=== PATIENT | female | born 1955 | race Caucasian/White ===

== ENCOUNTER 2017-01-22 19:41 | Inpatient (IN) | payer BC ==
[~2017-01-22] VITALS: Ht 157.5 cm; Wt 73.5 kg
--- NOTE | ~2017-01-22 | DS ---
PATIENT:MARITZA FLORES :53 MEDICAL RECORD: [id number] DISCHARGE SUMMARY ADMISSION DATE: 01/22/17 DISCHARGE DATE: 01/30/17 DATE OF ADMISSION: 01/22/2017 DATE OF DISCHARGE: 01/30/2017 ADMITTING DIAGNOSES: 1. Mass of the right lung. 2. Superior vena cava syndrome. 3. Dyspnea. 4. Dyspnea on exertion. 5. Anemia, unknown etiology. 6. Nicotine dependence with withdrawal. 7. Peripheral vascular disease. 8. Hypertension. 9. Chronic back pain. 10. History of degenerative disc disease. 11. Chronic obstructive pulmonary disease. HISTORY OF PRESENT ILLNESS: This is a 61-year-old white female patient of Dr. Leija'delilah admitted with diagnoses as outlined above. Details are well-outlined in the history of the present illness, H&P. All events, lab procedures, and diagnostic testing are well documented in the records. CONSULTANTS: 1. Dr. Workman, pulmonology. 2. Dr. Davila, hematology/oncology. 3. Dr. Obrien, cardiovascular surgery. 4. Dr. Garcia, general surgery. 5. Dr. Toney, interventional radiology. She underwent a CT-guided lung biopsy. Path showed stage IIB, IIA [id number] lung carcinoma, staging started. Bone scan negative. CT abdomen, right pleural effusion, no other intra-abdominal pathology. MRI was negative for any mets or any acute pathology. Iron stores found to be a little low, so p.o. iron added. Blood sugars closely followed and were stable. Her other appropriate home medicines continued. She did get port placed today by Dr. Garcia. She tolerated it well. She is stable for dismissal home. She will see Dr. Davila on Friday of this upcoming week. She was given a PET scan diet. PET scan will be arranged for next week. She will start chemo next week, possible radiation as planned. Dr. Obrien will continue to follow. She is dismissed home. We will have house calls follow up with her as well. DISCHARGE DIAGNOSES: 1. Mass of the right lung. 2. Superior vena cava syndrome. 3. Dyspnea. 4. Dyspnea on exertion. 5. Anemia, unknown etiology. 6. Nicotine dependence with withdrawal. 7. Peripheral vascular disease. 8. Hypertension. 9. Chronic back pain. DISCHARGE SUMMARY REPORT [id number] MARITZA FLORES 10. History of degenerative disc disease. 11. Chronic obstructive pulmonary disease. 12. Stage IIB, IIA [id number] lung cancer. The tumor has extension into the mediastinum and she is not a surgical candidate. The tumor is involving her superior vena cava as well as bulky disease in the mediastinum. Dr. Obrien wants to reevaluate her after chemotherapy. 13. Iron deficient anemia and likely anemia of malignancy. 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 She was started on Eliquis. OTHER DIAGNOSES: Chronic obstructive pulmonary disease, acute exacerbation, improved; nicotine dependence with withdrawal, suspected superior vena cava syndrome with neck swelling, cough, possible postobstructive pneumonia in the right upper lobe, hypertension, peripheral artery disease, chronic back pain, diabetes, Crohn's, depression, hypothyroid, weight loss, iron deficient anemia. Greater than 30 minutes was spent on this discharge. Please refer to med rec. TRANSINT:[id number] Voice Confirmation ID: [id number] DOCUMENT ID: [id number] Dictated By: ANGELLA MELÉNDEZ RN I have interviewed/examined the above patient and agree with these documented findings. GEORGE DOSHI MD CC: [id number] DICTATION DATE: 01/30/17 1533 PATTERN GENERATOR OPERATOR: 01/31/17 1045 DIS IN 01/30/17 [facility] [address] [place] [address]
[~2017-01-22 19:41] MED LIST: ACETAMINOPHEN500 M1 PO; ALDACTONE100 MG PO; APRISO0.375 GM PO; ARMOUR THYROID90 MG PO; CALTRATE-600600 MG PO; DUONEB 2.5-0.5 M3 ML UPD; EFFEXOR75 MG PO; ESTER-C 500 MG1 TAB PO; FISH OIL 1,0001 CA1 PO; FLAXSEED OIL1000 MG PO; FOLIC ACID1 MG PO; GLUCOPHAGE500 MG PO; HYDROCHLOROTHIA25 MG PO; HYDROCODONE-APA1 TAB PO; LISINOPRIL5 MG PO; LOTREL 5/10 MG1 CAP PO; MICRO-K10 MEQ PO; MULTI-DAY VITAM1 TAB PO; NORCO 10/325 TA1 TA1 PO; OXYCODONE HCL10 MG PO; PROMETRIUM200 MG PO; QUESTRAN PACK4 G/PKT PO; ROBAXIN-750750 MG PO; ULTRAM50 MG PO; VENTOLIN HFA18 GM INH; XANAX1 MG PO; ZANAFLEX2 MG PO; ZETIA10 MG PO; ZYLOPRIM300 MG PO; [UNRECOGNIZED DRUG - OTHER] PO
[2017-01-22 22:04] LABS: BASOPHILS 0.1 % (0-2); HEMATOCRIT 35.8 % (36.0-48.0); HEMOGLOBIN 11.7 g/dL (12-16); IMMATURE GRANULOCYTES 0.1 % (0-5); LYMPHOCYTES 20.1 % (15-50); MCHC 32.7 g/dL (31.0-37.0); MCV 94.7 fL (80.0-100.0); MEAN PLATELET VOLUME 9.3 fL (7.4-10.4); MONOCYTES 9.9 % (2-11); NEUTROPHILS 67.8 % (40-80); PLATELET COUNT 381 10x3/uL (130-400); RBC 3.78 10x6/uL (4.00-5.40); RDW 13.5 % (11.5-14.5)
[2017-01-22 22:17] LABS: ALBUMIN 3.2 g/dL (3.4-5.0); ALKALINE PHOSPHATASE 78 U/L (46-116); ALT (SGPT) 17 U/L (10-68); BILIRUBIN - TOTAL 0.28 mg/dL (0.2-1.3); CALC OSMOLALITY 274 mosm/kg (275-300); CALCIUM 9.6 mg/dL (8.5-10.1); CARBON DIOXIDE 26.8 mmol/L (21.0-32.0); CHLORIDE - SERUM 104 mmol/L (98-107); CREATININE - SERUM 0.8 mg/dL (0.6-1.3); GLUCOSE 85 mg/dL (74-106); PROTEIN - SERUM 7.4 g/dL (6.4-8.2); SODIUM 139 mmol/L (136-145); UREA NITROGEN 6 mg/dL (7-18); eGFR NON AFRICAN AMERICAN 77 mL/min (90-120)
[2017-01-23] VITALS: BP 149/79
--- NOTE | 2017-01-23 03:18 | NUR ---
ORDER PLACED FOR CT SCAN WITH CONTRAST. PT STATES NOT WANTING TO DO A CT WITH CONTRAST D/T HER METFORMIN. SPOKE WITH DR MORLEY, RELATES THAT IT WILL BE OK TO CHANGE THE CT CHEST TO WITHOUT CONTRAST. PT UPDATED ON POC. WILL MONITOR.
[2017-01-23 07:35] VITALS: BP 103/52
--- NOTE | 2017-01-23 08:04 | NUR ---
0725-AM ROUNDING DONE WITH PATIENT SITTING ON SIDE OF BED ON CELL PHONE. DENIES NEEDS AT PRESENT TIME. ON ROOM AIR. NO IV AT PRESENT TIME. MALE MEBER ASLEEP IN CHAIR.
--- NOTE | 2017-01-23 09:11 | NUR ---
PATIENT'S FACE, UPPER CHEST, AND BILATERAL ARMS ARE SWOLLEN. NO IV ACCESS YET, SHE HAS CONSENTED TO ONE.
--- NOTE | 2017-01-23 10:46 | NUR ---
UP WALKING IN HALLWAY WITH MALE MEMBER, DENIES ANY NEEDS AT PRESENT TIME.
--- NOTE | 2017-01-23 10:56 | NUR ---
20 G IV X 1 STICK TO RIGHT INNER UPPER ARM PER Ailyn CASIANO RN.
[2017-01-23 11:52] VITALS: BP 107/48
--- NOTE | 2017-01-23 13:37 | NUR ---
UP AMBULATING IN HALLWAY. DENIES NEEDS AT PRESENT TIME.
--- NOTE | 2017-01-23 14:07 | NUR ---
DR CHARLES HERE TO SEE PATIENT. PLACED ON 2L PER NC PATIENT IS GETTING SHORT OF BREATH.
--- NOTE | 2017-01-23 14:39 | NUR ---
BILATERAL SCD'S PLACED ON PATIENT AND IN USE.
--- NOTE | 2017-01-23 14:53 | NUR ---
PLACED ON HEART MONITOR SHOWING SR, HR 84
--- NOTE | 2017-01-23 15:27 | NUR ---
PATIENT IS INFORMED OF NPO PAST MIDNIGHT TONIGHT, PERMITS SIGNED FOR CONSENT FOR CT LUNG BIOSPY.
[2017-01-23 16:42] VITALS: BP 93/49
--- NOTE | 2017-01-23 17:18 | NUR ---
TO MRI VIA WHEELCHAIR.
--- NOTE | 2017-01-23 18:10 | NUR ---
RETURNS FROM RADIOLOGY, DR DIAS HERE TO SEE PATIENT. DR LAUREN AND OBED CAME BY EARILER BUT SHE WAS IN XRAY.
[2017-01-23 22:09] VITALS: BP 112/61
--- NOTE | 2017-01-23 22:09 | NUR ---
Recieved patient in her bed, alert and oriented X 4, bed in low and locked position, siderails up X 2, PRN Ativan 2 mg PO, [place]-10, and Tussionex 5 ml given at 1999, patient resting now quietly in bed, continue plan of care.
--- NOTE | 2017-01-24 01:34 | NUR ---
Patient resting in bed sleeping, family at bedside.
[2017-01-24 01:50] VITALS: BP 122/68
--- NOTE | 2017-01-24 04:13 | NUR ---
PRN [place] - 10 PO given for generalized pain 10 of 10 and Ativan 2 mg PO for anxiety given at 0410.
[2017-01-24 05:31] VITALS: BP 116/64
[2017-01-24 06:26] LABS: BASOPHILS 0.4 % (0-2); EOSINOPHILS 2.9 % (0-7); HEMATOCRIT 33.6 % (36.0-48.0); HEMOGLOBIN 10.8 g/dL (12-16); IMMATURE GRANULOCYTES 0.2 % (0-5); LYMPHOCYTES 30.6 % (15-50); MCH 30.3 pg (26.0-34.0); MCHC 32.1 g/dL (31.0-37.0); MCV 94.4 fL (80.0-100.0); MEAN PLATELET VOLUME 9.3 fL (7.4-10.4); MONOCYTES 13.5 % (2-11); NEUTROPHILS 52.4 % (40-80); PLATELET COUNT 338 10x3/uL (130-400); RBC 3.56 10x6/uL (4.00-5.40); RDW 13.4 % (11.5-14.5)
[2017-01-24 06:37] LABS: WBC 5.1 10x3/uL (4.8-10.8)
[2017-01-24 06:38] LABS: APTT 32.9 SECONDS (22.8-39.4); INR 1.01 (0.85-1.17); PROTIME 13.2 SECONDS (11.6-15.0)
[2017-01-24 06:47] LABS: ALBUMIN 2.7 g/dL (3.4-5.0); ALKALINE PHOSPHATASE 60 U/L (46-116); ALT (SGPT) 13 U/L (10-68); CALC OSMOLALITY 270 mosm/kg (275-300); CARBON DIOXIDE 24.5 mmol/L (21.0-32.0); CHLORIDE - SERUM 103 mmol/L (98-107); CREATININE - SERUM 0.7 mg/dL (0.6-1.3); GLUCOSE 96 mg/dL (74-106); PROTEIN - SERUM 6.5 g/dL (6.4-8.2); SODIUM 137 mmol/L (136-145); UREA NITROGEN 5 mg/dL (7-18); eGFR NON AFRICAN AMERICAN 90 mL/min (90-120)
--- NOTE | 2017-01-24 07:48 | NUR ---
AM ROUNDING- RECEIVED REPORT FROM TIME STUDY TECHNICIAN NURSE REN. PT IS CURRENTLY LAYING IN BED ON BACK WITH EYES CLOSED RESTING. ON MONITOR SHOWING SR, HR 79. NPO CURRENTLY FOR PROCEDURE TODAY. 0N 02 AT 2L VIA NC. IV SEEN TO RIGHT ARM THAT IS CURRENTLY SALINE LOCKED. SCDS ARE ON. CONSENTS ARE SIGNED FOR PROCEDURE AND ARE IN CHART. NO NEED AT CURRENT TIME. WILL CONTINUE TO MONITOR AND CONTINUE WITH PLAN OF CARE.
[2017-01-24 08:17] VITALS: BP 98/49
--- NOTE | 2017-01-24 08:33 | NUR ---
PT TO PROCEDURE VIA BED.
--- NOTE | 2017-01-24 08:57 | NUR ---
SPECIALS CALLED AND GAVE REPORT ON PT. PER REPORT PT HAD NO PNEUMOTHORAX AND WITH HARDLY ANY BLEEDING SEEN. WILL AWAIT PT TO RETURN AND CONTINUE TO MONITOR.
--- NOTE | 2017-01-24 09:04 | NUR ---
PT BACK FROM PROCEDURE VIA BED. LEATHA RAYMUNDO STATES IT IS NORMAL FOR PT TO COUGH UP SOME BLOOD BUT LET THEM KNOW IF IT IS AN ABNORMAL AMOUNT. NO FURTHER ORDERS GIVEN. WILL CONTINUE TO MONITOR.
[2017-01-24 11:41] VITALS: BP 100/62
--- NOTE | 2017-01-24 11:50 | NUR ---
PT IS VERY CONFUSED. INSTRUCTED PT TO STAY IN BED AND NOT GET UP WITHOUT ASSISTANCE. SIDE RAILS UP X 2 AND BED ALARM IS ON. WILL CONTINUE TO MONITOR.
[2017-01-24 14:55] VITALS: BP 110/59
--- NOTE | 2017-01-24 17:46 | NUR ---
PT IS CURRENTLY LAYING IN BED ON BACK. GUEST AT BEDSIDE. GUEST REQUEST WHEELCHAIR SO HE CAN TAKE PT DOWN TO SEE HER SON. WHEELCHAIR GIVEN TO PT. NO OTHER NEED AT CURRENT TIME. WILL CONTINUE TO MONITOR.
[2017-01-24 20:00] VITALS: BP 133/51
--- NOTE | 2017-01-24 20:15 | NUR ---
ASSESSMENT DONE. PT STANDING AT DOOR TO HER ROOM, WAITING ON FRIEND TO BRING W/C. PT STATES SHE IS GOING OUTSIDE TO SEE HER PUPPY. PT IS OFF BALANCE. BUT REFUSING TO SIT AND WAIT ON W/C. PT'S FRIEND BROUGHT W/C STATES HE WILL SIT WITH HER OUTSIDE.
--- NOTE | 2017-01-24 21:00 | NUR ---
PT BACK IN ROOM. SLEEPING. HOB ELEVATED. O2 AT 2L VIA NC. APPEARS COMFORTABLE. NO DISTRESS NOTED. CALL LIGHT WITH IN REACH. SCD'S OFF AT THIS TIME. BED ALARM TURNED ON. WILL CONT. TO MONITOR.
--- NOTE | 2017-01-24 21:41 | NUR ---
PT UP IN RESTROOM. NURSE ASSISTED PT BACK TO BED. SCD'S PLACED ON PT. PT NOT WEARING O2. NURSE PLACED NC ON PT. ALSO BED ALARM TURNED ON. DOOR TO ROOM LEFT OPEN. CALL LIGHT WITH IN REACH. WILL CONT. TO MONITOR.
--- NOTE | 2017-01-24 23:38 | NUR ---
PT SLEEPING. LAYING WITH BED FLAT AND LAYING ON LEFT SIDE. EYES CLOSED, RESP EVEN AND UNLABORED. WEARING O2. PT APPEARS COMFORTABLE. BED ALARM ON. CALL LIGHT WITH IN REACH. WILL CONT. TO MONITOR.
--- NOTE | 2017-01-25 00:35 | NUR ---
PT TURNED BED ALARM OFF AND REMOVED SCD'S, AMBULATED TO PCU NURSES STATION AND REQUESTED COFFEE. WHEN NURSE ASKED WHY SHE DIDN'T USE HER CALL LIGHT SHE STATES "I LOST IT." PT MADE TO SIT IN CHAIR WHILE STAFF ASSISTED WITH MAKING COFFEE. PT A/O. NO WEARING O2. SLIGHT SOB NOTED. WILL CONT. TO MONITOR.
--- NOTE | 2017-01-25 01:05 | NUR ---
PT BACK IN BED. A/O. WATCHING TV AND EATING ICECREAM. DENIES NEEDS. CALL LIGHT WITH IN REACH. WILL CONT. TO MONITOR.
--- NOTE | 2017-01-25 02:35 | NUR ---
PT SLEEING. APPEARS COMFORTABLE. WEARING O2. PT IS SNORING. CALL LIGHT WITH IN REACH. WILL CONT. TO MONITOR.
--- NOTE | 2017-01-25 04:30 | NUR ---
SPUTUM COLLECTION CONTAINER TAKEN TO PT'S ROOM. EDUCATED PT ON HOW TO OBTAIN SPECIMEN. UNDERSTANDING VERBALIZED.
--- NOTE | 2017-01-25 04:48 | NUR ---
PT SITTING UP ON SIDE OF BED DRINKING COFFEE. A/O X3. REFUSING TO WEAR O2 AT THIS TIME, BUT NC IS BESIDE PT ON BED FOR WHEN SHE BECOMES SOB. NO DISTRESS NOTED. PT DENIES OTHER NEEDS AT THIS TIME. CALL LIGHT WITH IN REACH. WILL CONT. TO MONITOR.
[2017-01-25 05:01] LABS: BASOPHILS 0.6 % (0-2); EOSINOPHILS 2.1 % (0-7); HEMATOCRIT 34.3 % (36.0-48.0); HEMOGLOBIN 10.9 g/dL (12-16); IMMATURE GRANULOCYTES 0.2 % (0-5); LYMPHOCYTES 28.7 % (15-50); MCHC 31.8 g/dL (31.0-37.0); MCV 94.5 fL (80.0-100.0); MEAN PLATELET VOLUME 9.3 fL (7.4-10.4); MONOCYTES 13.3 % (2-11); NEUTROPHILS 55.1 % (40-80); PLATELET COUNT 378 10x3/uL (130-400); RBC 3.63 10x6/uL (4.00-5.40); RDW 13.4 % (11.5-14.5); WBC 4.7 10x3/uL (4.8-10.8)
[2017-01-25 05:11] VITALS: BP 103/66
[2017-01-25 05:29] LABS: ALBUMIN 2.8 g/dL (3.4-5.0); ALKALINE PHOSPHATASE 63 U/L (46-116); ALT (SGPT) 14 U/L (10-68); CALC OSMOLALITY 274 mosm/kg (275-300); CALCIUM 9.1 mg/dL (8.5-10.1); CARBON DIOXIDE 26.1 mmol/L (21.0-32.0); CHLORIDE - SERUM 104 mmol/L (98-107); CREATININE - SERUM 0.7 mg/dL (0.6-1.3); GLUCOSE 97 mg/dL (74-106); POTASSIUM - SERUM 4.4 mmol/L (3.5-5.1); PROTEIN - SERUM 6.8 g/dL (6.4-8.2); SODIUM 139 mmol/L (136-145); UREA NITROGEN 5 mg/dL (7-18); eGFR NON AFRICAN AMERICAN 90 mL/min (90-120)
--- NOTE | 2017-01-25 10:17 | NUR ---
0700- AM ROUNDING, RECEIVED REPORT FROM TEST PREPARATION TUTOR NURSE JAKE. PT IS CURRENTLY WALKING AROUND IN [address]. ON MONITOR SHOWING SR, HR 84. ON 02 AT 2L VIA NC. IV SEEN TO RIGHT UPPER ARM THAT IS CURRENTLY SALINE LOCKED. CLEAN, DRY, AND INTACT DRESSING SEEN TO RIGHT CHEST AREA FROM WHERE PT HAD PROCEDURE YESTERDAY. SCDS ARE AT BEDSIDE. NO NEED AT CURRENT TIME. WILL CONTINUE TO MONITOR.
[2017-01-25 10:48] VITALS: BP 119/70
[2017-01-25 13:59] VITALS: BP 124/69
[2017-01-25 16:51] VITALS: BP 111/53
--- NOTE | 2017-01-25 19:28 | NUR ---
RESTING ON LEFT SIDE, RESPERATIONS EVEN, NO S/S DISTRESS NOTED. BED LOW, CL IN REACH.
[2017-01-25 20:00] VITALS: BP 139/76
--- NOTE | 2017-01-25 21:28 | NUR ---
HS MEDS GIVEN WITH FRESH ICE WATER. NORCO 1 TAB GIVEN FOR C/O PAIN, RATES PAIN AT A 6 ON PAIN SCALE. NO OTHER NEEDS AT THIS TIME, BED LOW, CL IN REACH.
[2017-01-26] VITALS (7 sets, daily range): BP systolic 104–148; BP diastolic 50–78
--- NOTE | 2017-01-26 02:29 | NUR ---
OUT OF ROOM, SITTING AT NURSES STATION.
--- NOTE | 2017-01-26 02:31 | NUR ---
RESTING WITH EYES CLOSED, RESPERATIONS EVEN, NO S/S DISTRESS NOTED.
[2017-01-26 06:06] LABS: BASOPHILS 0.8 % (0-2); EOSINOPHILS 2.2 % (0-7); HEMATOCRIT 33.9 % (36.0-48.0); HEMOGLOBIN 11.1 g/dL (12-16); IMMATURE GRANULOCYTES 0.2 % (0-5); LYMPHOCYTES 27.1 % (15-50); MCH 30.7 pg (26.0-34.0); MCHC 32.7 g/dL (31.0-37.0); MCV 93.6 fL (80.0-100.0); MEAN PLATELET VOLUME 9.1 fL (7.4-10.4); MONOCYTES 13.5 % (2-11); NEUTROPHILS 56.2 % (40-80); PLATELET COUNT 357 10x3/uL (130-400); RBC 3.62 10x6/uL (4.00-5.40); RDW 13.3 % (11.5-14.5); WBC 5.1 10x3/uL (4.8-10.8)
[2017-01-26 06:25] LABS: % SATURATION 10 % (15-55); IRON 29 ug/dl (35-150); TOTAL IRON BIND CAPACITY 269 ug/dl (260-445); UNSAT IRON BIND CAPACITY 240 ug/dl (150-375)
[2017-01-26 07:18] LABS: ALBUMIN 2.9 g/dL (3.4-5.0); ALKALINE PHOSPHATASE 71 U/L (46-116); ALT (SGPT) 13 U/L (10-68); BILIRUBIN - TOTAL 0.17 mg/dL (0.2-1.3); CALC OSMOLALITY 275 mosm/kg (275-300); CALCIUM 9.2 mg/dL (8.5-10.1); CHLORIDE - SERUM 105 mmol/L (98-107); CREATININE - SERUM 0.7 mg/dL (0.6-1.3); FERRITIN 76 ng/mL (3-244); GLUCOSE 108 mg/dL (74-106); PROTEIN - SERUM 6.5 g/dL (6.4-8.2); SODIUM 139 mmol/L (136-145); UREA NITROGEN 5 mg/dL (7-18); eGFR NON AFRICAN AMERICAN 90 mL/min (90-120)
[2017-01-26 07:20] LABS: POTASSIUM - SERUM 3.7 mmol/L (3.5-5.1)
--- NOTE | 2017-01-26 07:45 | NUR ---
CHARTS CHECKED. SHIFT ASSESSMENT COMPLETED. INTRODUCED MYSELF TO PT PRIMARY RN FOR TODAYS SHIFT. PT RESTING QUIETLY AND DENIES ANY CURRENT NEEDS AT THIS TIME. CL IN REACH. WILL CTM.
--- NOTE | 2017-01-26 09:20 | NUR ---
ADMINISTERED AM MEDICATIONS ORDERED. PT REFUSED HER METFORMIN R/T HAVING POSSIBLE TEST AND KNOWING IF WITH CONTRAST THAT IT WOULD NEED HELD. 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 PT REQUESTED AND WAS PROVIDED WITH PRN VALIUM AND ROBAXIN FOR ANXIETY AND MS. PT SITTING UP ON EDGE OF BED DRINKING HER COFFEE. DENIES ANY FURTHER NEEDS AT THIS TIME. CL IN REACH, BED IN LOWEST, SIDE RAILS X2. WILL CPOC.
--- NOTE | 2017-01-26 15:34 | NUR ---
PT NPO FOR CT SCAN BUT IS DRINKING THE CONTRAST FOR TEST. PT IS VERY LETHARGIC/DROWSY HASNT BEEN GIVEN ANY SEDATIVES SINCE EARLY THIS MORNING. VSS. PT DENIES ANY FURTHER NEEDS. WILL CPOC.
--- NOTE | 2017-01-26 19:41 | NUR ---
RESUMED CARE OF PT, UP IN HALLWAY AMBULATING. 86 SR ON TELEMETRY. RIGHT UPPER ARM SALINE LOCKED. CALL LIGHT IN REACH. WILL CONTINUE TO MONITOR. SEE NURSE ASSESSMENT.
--- NOTE | 2017-01-27 00:54 | NUR ---
LYING IN BED WITH EYES CLOSED, CALL LIGHT IN REACH. WILL CONTINUE WITH PLAN OF CARE.
[2017-01-27 03:23] VITALS: BP 127/56
[2017-01-27 04:53] LABS: BASOPHILS 0.4 % (0-2); EOSINOPHILS 2.6 % (0-7); HEMATOCRIT 33.3 % (36.0-48.0); HEMOGLOBIN 10.7 g/dL (12-16); IMMATURE GRANULOCYTES 0.2 % (0-5); LYMPHOCYTES 25.3 % (15-50); MCH 30.4 pg (26.0-34.0); MCHC 32.1 g/dL (31.0-37.0); MCV 94.6 fL (80.0-100.0); MEAN PLATELET VOLUME 9.4 fL (7.4-10.4); MONOCYTES 10.8 % (2-11); NEUTROPHILS 60.7 % (40-80); PLATELET COUNT 364 10x3/uL (130-400); RBC 3.52 10x6/uL (4.00-5.40); RDW 13.3 % (11.5-14.5); WBC 5.1 10x3/uL (4.8-10.8)
[2017-01-27 05:10] LABS: ALBUMIN 2.7 g/dL (3.4-5.0); ALKALINE PHOSPHATASE 67 U/L (46-116); ALT (SGPT) 11 U/L (10-68); CALC OSMOLALITY 277 mosm/kg (275-300); CALCIUM 8.9 mg/dL (8.5-10.1); CARBON DIOXIDE 27.2 mmol/L (21.0-32.0); CHLORIDE - SERUM 104 mmol/L (98-107); CREATININE - SERUM 0.8 mg/dL (0.6-1.3); GLUCOSE 136 mg/dL (74-106); POTASSIUM - SERUM 3.3 mmol/L (3.5-5.1); PROTEIN - SERUM 6.8 g/dL (6.4-8.2); SODIUM 140 mmol/L (136-145); UREA NITROGEN 5 mg/dL (7-18); eGFR NON AFRICAN AMERICAN 77 mL/min (90-120)
--- NOTE | 2017-01-27 07:22 | NUR ---
PT UP AD BARRY TO THE BATHROOM AT THIS TIME, DENIES NEEDS WILL CONT TO MONITOR
[2017-01-27 08:33] VITALS: BP 104/43
[2017-01-27 12:00] VITALS: BP 114/51
[2017-01-27 16:00] VITALS: BP 129/74
--- NOTE | 2017-01-27 18:17 | NUR ---
PT NEEDS STOOL SAMPLE. WAS UNABLE TO COLLECT DUE TO PT BEING INC BM IN BRIEF AND THROWING AWAY BRIEF AFTER IT WAS SOILED
--- NOTE | 2017-01-27 18:25 | NUR ---
PT SITTING UP TO CHAIR WATCHING TV DENIES NEEDS
--- NOTE | 2017-01-27 19:54 | NUR ---
PT AWAKE, ALERT, ORIENTED, SITTING AT BEDSIDE, REQUESTING HER PRP MEDS FOR BEDTIME. DENIES ANY NEEDS, IN NO ACUTE DISTRESS. CONTINUE TO MONITOR CLOSELY.
[2017-01-27 20:10] VITALS: BP 117/62
[2017-01-28 00:05] VITALS: BP 124/65
[2017-01-28 03:37] VITALS: BP 124/67
--- NOTE | 2017-01-28 04:27 | NUR ---
PT LYING IN BED, EYES CLOSED, RESPIRATIONS EVEN AND UNLABORED AT THIS TIME. PT HAS FREQUENT COUGHING, UNRELIEVED WITH COUGH RX. PT IS ASKING TUSSIONEX BE CHANGED TO PHENERGAN VC WITH CODEINE, SHE HAS HAD IT BEFORE AND WORKED WELL. PT DENIES ANY OTHER ACUTE NEEDS. CONTINUE TO MONITOR CLOSELY. BED LOW, CALL LIGHT IN REACH, SIDE RAILS X 2, HOB 30 DEGREES.
--- NOTE | 2017-01-28 05:12 | NUR ---
RESPIRATORY CXL COLLECTED PER ORDER
[2017-01-28 05:56] LABS: BASOPHILS 0.2 % (0-2); EOSINOPHILS 2.2 % (0-7); HEMATOCRIT 32.4 % (36.0-48.0); HEMOGLOBIN 10.5 g/dL (12-16); IMMATURE GRANULOCYTES 0.2 % (0-5); LYMPHOCYTES 21.2 % (15-50); MCH 30.4 pg (26.0-34.0); MCHC 32.4 g/dL (31.0-37.0); MCV 93.9 fL (80.0-100.0); MEAN PLATELET VOLUME 8.7 fL (7.4-10.4); MONOCYTES 11.7 % (2-11); NEUTROPHILS 64.5 % (40-80); PLATELET COUNT 323 10x3/uL (130-400); RBC 3.45 10x6/uL (4.00-5.40); RDW 13.3 % (11.5-14.5)
[2017-01-28 06:03] LABS: WBC 6.4 10x3/uL (4.8-10.8)
[2017-01-28 06:23] LABS: ALBUMIN 2.7 g/dL (3.4-5.0); ALKALINE PHOSPHATASE 60 U/L (46-116); CALCIUM 8.7 mg/dL (8.5-10.1); CHLORIDE - SERUM 102 mmol/L (98-107); CREATININE - SERUM 0.7 mg/dL (0.6-1.3); GLUCOSE 94 mg/dL (74-106); POTASSIUM - SERUM 3.5 mmol/L (3.5-5.1); PROTEIN - SERUM 6.7 g/dL (6.4-8.2); SODIUM 135 mmol/L (136-145); eGFR NON AFRICAN AMERICAN 90 mL/min (90-120)
[2017-01-28 06:27] LABS: ALT (SGPT) 14 U/L (10-68); CALC OSMOLALITY 267 mosm/kg (275-300); UREA NITROGEN 8 mg/dL (7-18)
--- NOTE | 2017-01-28 07:50 | NUR ---
RECEIVED REPORT FROM UNDERWATER TRAPPER NURSE, SIDDHARTH ZHANG. PT IN BED, SLEEPING AT THIS TIME. CALL LIGHT IN REACH, NAD NOTED, WILL CONTINUE TO MONITOR.
[2017-01-28 08:08] VITALS: BP 122/58
--- NOTE | 2017-01-28 09:57 | NUR ---
WENT TO GIVE MORNING MEDICATIONS, PT NOT IN ROOM AT THIS TIME. WILL TRY AGAIN IN 10MIN.
[2017-01-28 11:39] VITALS: BP 127/62
--- NOTE | 2017-01-28 12:47 | NUR ---
PT IN ROOM SLEEPING AT THIS TIME. NO FAMILY AT BEDSIDE, CALL LIGHT IN REACH, NAD NOTED, WILL CONTINUE TO MONITOR.
--- NOTE | 2017-01-28 15:13 | NUR ---
ADMINISTERED 10MG OF NORCO FOR PAIN LEVEL OF 9/10 AND 2MG OF ATIVAN PER PT REQUEST. PT UP TO SIDE OF BED, DENIES ANY OTHER NEEDS AT THIS TIME. CALL LIGHT IN REACH, NAD NOTED, WILL CONTINUE TO MONITOR.
[2017-01-28 15:38] VITALS: BP 104/69
--- NOTE | 2017-01-28 16:11 | NUR ---
Patient Name: MARITZA FLORES Admission Status: ER Accout number: [id number] Admission Date: 01-22-2017 : 1955 Admission Diagnosis:DYSPNEA, UNSPECIFIED Attending: SESAR Current LOS: 6 Anticipated DC Date: TO BE DETERMINED Planned Disposition: Home Primary Insurance: Incoming Media [facility] Discharge Planning Comments: * Is the patient Alert and Oriented? Yes 0 * How many steps to enter\exit or inside your home? 6 0 * PCP DR. DIAS 0 * Pharmacy [facility] [address] OR [facility] 0 * Preadmission Environment Home with Family 0 * ADLs Independent 0 * Equipment None 0 * Other Equipment NO MEDICAL EQUIPMENT PROVIDER PREFERNCE 0 * List name and contact numbers for known caregivers / representatives who currently or will assist patient after discharge: HA FLORES, SON, 0 * Community resources currently utilized None 0 * Please name any agencies selected above. NONE 0 * Additional services required to return to the preadmission environment? No 0 * Can the patient safely return to the preadmission environment? Yes 0 * Has this patient been hospitalized within the prior 30 days at any hospital? No 0 CM MET WITH PT IN ROOM TO DISCUSS DISCHARGE PLANNING AND NEEDS. PT REPORTS LIVING AT HOME INDEPENDENTLY; PT'S ADULT SON LIVES WITH PT. PT HAS NO MEDICAL EQUIPMENT AND NO OUTSIDE SERVICES ASSISTING IN THE HOME. CM DISCUSSED AVAILABILITY OF HOME HEALTH, REHAB SERVICES AND MEDICAL EQUIPMENT. PT REPORTS UNKNOWN DISCHARGE NEEDS AT THIS TIME, REPORTS HER SON WILL PICK HER UP FOR DISCHARGE HOME. CM TO FOLLOW AND ASSIST IF NEEDED. Enforcement Safety Officer: Tee Marin
[2017-01-28 19:56] VITALS: BP 120/62
--- NOTE | 2017-01-28 22:55 | NUR ---
NURSING ROUNDS 20:30 - PT AWAKE, ALERT, ORIENTED, DENIES ANY ACUTE NEEDS. CONTINUE TO MONITOR CLOSELY.
[2017-01-29 03:42] VITALS: BP 105/66
--- NOTE | 2017-01-29 05:02 | NUR ---
PT LYING IN BED, EYES CLOSED, RESPIRATIONS EVEN AND UNLABORED. SCD'S ON. PT EASILY ROUSABLE TO VERBAL STIMULI, DENIES ANY NEEDS. CONTINUE TO MONITOR CLOSELY.
[2017-01-29 08:53] VITALS: BP 111/56
--- NOTE | 2017-01-29 10:55 | NUR ---
0715- AM ROUNDING- RECEIVED REPORT FROM WHEELMAN NURSE LEATHA MESSINA. PT IS CURRENLY LAYING IN BED ON BACK WITH EYES CLOSED RESTING. ON MONITOR SHOWING SR, HR 79. ON ROOM AIR. IV SEEN TO RIGHT AC WITH IV ANTIBIOTICS CURRENTLY RUNNING. NO NEED AT CURRENT TIME. WILL CONTINUE TO MONITOR AND CONTINUE WITH PLAN OF CARE.
[2017-01-29 12:48] VITALS: BP 123/61
[2017-01-29 16:21] VITALS: BP 111/63
--- NOTE | 2017-01-29 16:59 | NUR ---
CONSENTS FOR PROCEDURE SIGNED BY PT AND PLACED IN CHART ORDERED. NPO SIGN PLACED ON PTS DOOR. PT INSTRUCTED TO REMAIN NPO (NOTHING BY MOUTH) ORDERED AFTER MIDNIGHT, PT AGREED. WILL CONTINUE TO MONITOR.
--- NOTE | 2017-01-29 17:56 | NUR ---
PT IS CURRENTLY SITTING UP ON SIDE OF BED EATING DINNER. NO NEED AT CURRENT TIME. WILL CONTINUE TO MONITOR.
[2017-01-29 20:00] VITALS: BP 124/51
--- NOTE | 2017-01-29 20:28 | NUR ---
PT AWAKE, ALERT, ORIENTED, DENIES ANY NEEDS AT THIS TIME. CONTINUE TO MONITOR CLOSELY. BED LOW, CALL LIGHT IN REACH, SIDE RAILS X 2, HOB 30 DEGREES.
[2017-01-29 23:00] VITALS: BP 124/73
--- NOTE | 2017-01-30 04:35 | NUR ---
PT LYING IN BED, EYES CLOSED, RESPIRATIONS EVEN AND UNLABORED. PT EASILY ROUSABLE TO VERBAL STIMULI. PT NPO ORDERED. CONTINUE TO MONITOR CLOSELY. BED LOW, CALL LIGHT IN REACH, SIDE RAILS X 2, HOB 30 DEGREES.
[2017-01-30 05:10] VITALS: BP 107/49
[2017-01-30] MEDS ORDERED: HYDROCODONE-APA1 TAB PO (09:06)
--- NOTE | 2017-01-30 09:26 | NUR ---
X-RAY OF CHEST COMPLETE @2053
[2017-01-30 09:48] VITALS: BP 121/68
--- NOTE | 2017-01-30 09:52 | NUR ---
PT TRANSFERED BACK TO ROOM 2140. PT STILL DROWSY AT THIS TIME, DENIE ANY PAIN. DRESSING NOTED TO LT CHEST AND LT JUGULAR AREA. VITAL SIGNS STABLE, NAD NOTED, CALL LIGHT IN REACH, WILL CONTINUE TO MONITOR.
--- NOTE | 2017-01-30 10:22 | NUR ---
ADMINISTERED MORNING MEDICATIONS, THEY WERE GIVEN LATE BECAUSE PT WAS IN SURGERY. PT STILL A LITTLE DROWSY. STATES THAT SHE IS NOW HURTING WILL PROVIDED HER WITH PAIN MED SHORTLY. NAD NOTED, WILL CONTINUE TO MONITOR.
--- NOTE | 2017-01-30 12:08 | NUR ---
ADMINISTERED NORCO 10MG FOR PAIN LEVEL OF 10/10, AND ALSO GAVE 2MG OF ATIVAN PER PT REQUEST. PT MORE ALERT AT THIS TIME, EATING LUNCH. PT DENIES ANY OTHER NEEDS AT THIS TIME. CALL LIGHT IN REACH, NAD NOTED, WILL CONTINUE TO MONITOR.
[2017-01-30] MEDS ORDERED: BENZONATATE200 MG PO (12:46)
[2017-01-30] MEDS ORDERED: PROTONIX40 MG PO (12:46)
[2017-01-30] MEDS ORDERED: FERREX 150 PLUS1 CAP PO (12:46)
[2017-01-30] MEDS ORDERED: NICODERM C1 PATCH .3 TRANSDERM (12:46)
[2017-01-30] MEDS ORDERED: MUCINEX DM ER1 EAC1 PO (12:46)
[2017-01-30 12:51] VITALS: BP 114/59
[2017-01-30] MEDS ORDERED: ELIQUIS5 MG PO (13:11)
[2017-01-30 13:29] VITALS: Ht 157.5 cm; Wt 73.5 kg
--- NOTE | 2017-01-30 14:31 | NUR ---
PROVIDED VERBAL AND WRITTEN DISCHARGE TEACHING TO PT. PT VERBALIZED UNDERSTANDING REGARDING DISCHARGE. D/C RIGHT AC IV, TIP INTACT. PT WAITING ON RIDE WILL NOTIFY NURSE WHEN SHE IS READY. NAD NOTED, CALL LIGHT IN REACH, WILL CONTINUE TO MONITOR.
--- NOTE | 2017-01-30 14:58 | NUR ---
PT LEFT UNIT VIA WHEELCHAIR, NAD NOTED.
== END 2017-01-30 14:58 | disposition home or self-care (01) | DRG 181 ==
LOC: D.ER 19:41 → D.M2 23:07
PROVIDERS: Internal Medicine Hematology & Oncology; Internal Medicine Pulmonary Disease; Physician Assistant; ADMIT Family Medicine
PROC: 0BBC3ZX Excision of Right Upper Lung Lobe, Percutaneous Approach, Diagnostic (ICD-10-PCS; principal; 2017-01-24)
PROC: 02HV33Z Insertion of Infusion Device into Superior Vena Cava, Percutaneous Approach (ICD-10-PCS; 2017-01-30)
PROC: B548ZZA Ultrasonography of Superior Vena Cava, Guidance (ICD-10-PCS; 2017-01-30)
PROC: 0JH63XZ Insertion of Tunneled Vascular Access Device into Chest Subcutaneous Tissue and Fascia, Percutaneous Approach (ICD-10-PCS; 2017-01-30)
PROC: 06H033Z Insertion of Infusion Device into Inferior Vena Cava, Percutaneous Approach (ICD-10-PCS; 2017-01-30)
PROC: B549ZZA Ultrasonography of Inferior Vena Cava, Guidance (ICD-10-PCS; 2017-01-30)
DX: C34.11 Malignant neoplasm of upper lobe, right bronchus or lung (principal); C78.1 Secondary malignant neoplasm of mediastinum; C79.89 Secondary malignant neoplasm of other specified sites; I87.1 Compression of vein; J44.1 Chronic obstructive pulmonary disease with (acute) exacerbation; F17.203 Nicotine dependence unspecified, with withdrawal; E11.9 Type 2 diabetes mellitus without complications; I10 Essential (primary) hypertension; D64.9 Anemia, unspecified; E03.9 Hypothyroidism, unspecified; F32.9 Major depressive disorder, single episode, unspecified

== ENCOUNTER → 2017-04-11 16:40 | Outpatient (CLI) | payer BC ==
[2017-01-30 13:29] VITALS: BMI 29.6
[~2017-04-11 16:40] MED LIST changes: +BENZONATATE200 MG PO; +ELIQUIS5 MG PO; +FERREX 150 PLUS1 CAP PO; +MUCINEX DM ER1 EAC1 PO; +NICODERM C1 PATCH .3 TRANSDERM; +PROTONIX40 MG PO
== END | disposition home or self-care (01) ==
LOC: D.MAMMO 14:45
DX: Z12.31 Encounter for screening mammogram for malignant neoplasm of breast (principal)

== ENCOUNTER → 2017-04-29 16:00 | Outpatient (CLI) | payer BC ==
[2017-01-30 13:29] VITALS: BMI 29.6
== END | disposition home or self-care (01) ==
LOC: D.MAMMO
DX: R92.8 Other abnormal and inconclusive findings on diagnostic imaging of breast (principal)

== ENCOUNTER → 2017-07-23 08:17 | Outpatient (CLI) | payer BC ==
[2017-07-21 12:21] VITALS: BMI 31.6
== END | disposition home or self-care (01) ==
LOC: D.RT 08:17
DX: J44.9 Chronic obstructive pulmonary disease, unspecified (principal)

== ENCOUNTER 2017-07-25 05:52 | Outpatient (CLI) | payer BC ==
[2017-07-21 08:26] VITALS: BP 138/62; BMI 31.6
[2017-07-21 09:16] LABS: INR 1.16 (0.85-1.17); PROTIME 14.7 SECONDS (11.6-15.0)
[2017-07-21 09:17] LABS: ALKALINE PHOSPHATASE 82 U/L (46-116); ALT (SGPT) 23 U/L (10-68); APTT 40.5 SECONDS (22.8-39.4); BILIRUBIN - TOTAL 0.41 mg/dL (0.2-1.3); CALC OSMOLALITY 279 mosm/kg (275-300); CALCIUM 8.8 mg/dL (8.5-10.1); CARBON DIOXIDE 28.8 mmol/L (21.0-32.0); CHLORIDE - SERUM 103 mmol/L (98-107); CREATININE - SERUM 0.8 mg/dL (0.6-1.3); GLUCOSE 112 mg/dL (74-106); POTASSIUM - SERUM 4.7 mmol/L (3.5-5.1); PROTEIN - SERUM 6.3 g/dL (6.4-8.2); SODIUM 139 mmol/L (136-145); UREA NITROGEN 15 mg/dL (7-18); eGFR NON AFRICAN AMERICAN 77 mL/min (90-120)
[2017-07-21 09:34] LABS: HEMATOCRIT 27.9 % (36.0-48.0); HEMOGLOBIN 9.5 g/dL (12-16); MCH 36.7 pg (26.0-34.0); MCHC 34.1 g/dL (31.0-37.0); MCV 107.7 fL (80.0-100.0); MEAN PLATELET VOLUME 9.6 fL (7.4-10.4); RBC 2.59 10x6/uL (4.00-5.40); RDW 13.8 % (11.5-14.5); WBC 2.4 10x3/uL (4.8-10.8)
[2017-07-21 09:35] LABS: PLATELET COUNT 76 10x3/uL (130-400)
[2017-07-21 10:17] LABS: ANISOCYTOSIS OCC; LYMPHOCYTES 14 % (15-50); MONOCYTES 3 % (2-11); NEUTROPHILS 80 % (40-80); PLATELET ESTIMATE DECREASED; ROULEAUX OCC
--- NOTE | 2017-07-21 10:56 | NUR ---
1030-RADIOLOGIST NOTIFIED HAS CONTINUED ELOQUIS. PROCEDURE TO BE CX AND RESCHEDULED. 1040-IV D/C 1050-DISCHARGE INSTRUCTIONS REVIEWED AND D/C HOME AMBULATORY PER REQUEST.
[2017-07-25 07:40] LABS: BASOPHILS 0.2 % (0-2); EOSINOPHILS 0.7 % (0-7); HEMATOCRIT 25.2 % (36.0-48.0); HEMOGLOBIN 8.4 g/dL (12-16); IMMATURE GRANULOCYTES 0.2 % (0-5); LYMPHOCYTES 16.6 % (15-50); MCH 36.5 pg (26.0-34.0); MCHC 33.3 g/dL (31.0-37.0); MCV 109.6 fL (80.0-100.0); MEAN PLATELET VOLUME 10.1 fL (7.4-10.4); MONOCYTES 16.3 % (2-11); RDW 14.1 % (11.5-14.5); WBC 4.4 10x3/uL (4.8-10.8)
[2017-07-25 07:46] VITALS: BP 107/64; BMI 31.8
[2017-07-25 07:48] LABS: APTT 27.6 SECONDS (22.8-39.4); INR 1.01 (0.85-1.17); PROTIME 13.1 SECONDS (11.6-15.0)
[2017-07-25 07:49] LABS: PLATELET COUNT 38 10x3/uL (130-400)
--- NOTE | 2017-07-25 07:50 | NUR ---
VENOUS ACCESS PORT IS ALREADY ACCESSED, DRESSING CHANGED PER SHADE SMITH,RN
[2017-07-25 07:51] LABS: CALC OSMOLALITY 276 mosm/kg (275-300); CALCIUM 9.2 mg/dL (8.5-10.1); CHLORIDE - SERUM 106 mmol/L (98-107); CREATININE - SERUM 0.8 mg/dL (0.6-1.3); GLUCOSE 97 mg/dL (74-106); POTASSIUM - SERUM 4.6 mmol/L (3.5-5.1); SODIUM 138 mmol/L (136-145); UREA NITROGEN 16 mg/dL (7-18); eGFR NON AFRICAN AMERICAN 77 mL/min (90-120)
--- NOTE | 2017-07-25 11:35 | NUR ---
SEE POST PROCEDURE VITAL SIGN SHEET FOR ALL VITAL SIGNS. COFFEE GIVEN PER REQUEST. REGULAR DIET TRAY ORDERED FOR LUNCH
--- NOTE | 2017-07-25 13:20 | NUR ---
CHEST XRAY COMPLETE REMAINS EATING ON TRAY. DENIES ANY NEEDS.
--- NOTE | 2017-07-25 15:30 | NUR ---
SUB PORT FLUSHED W/10CC NS AND 5CC HEP. WELL SIA NEEDLE REMOVED W/O DIFF TIP INTACT.
--- NOTE | 2017-07-25 15:35 | NUR ---
PT DRESSED AND READY DC TEACHING COMPLETE VU.
--- NOTE | 2017-07-25 15:45 | NUR ---
PT DC HOME VIA WC TO DOOR W/ DRIVING.
== END 2017-07-25 15:45 | disposition home or self-care (01) ==
LOC: D.OPS
PROVIDERS: Internal Medicine Hematology & Oncology; Radiology Diagnostic Radiology
DX: C34.31 Malignant neoplasm of lower lobe, right bronchus or lung (principal); Z01.812 Encounter for preprocedural laboratory examination

== ENCOUNTER → 2017-09-05 10:56 | Outpatient (CLI) | payer BC | END | disposition home or self-care (01) | LOC: D.US | DX: D69.6 Thrombocytopenia, unspecified (principal) ==